=== PATIENT | female | born 1950 | race Caucasian/White ===

== ENCOUNTER 2020-05-18 11:36 | Inpatient (IN) | payer BC, SELFPAY ==
[2020-05-18] VITALS: BP_SYST 145
[~2020-05-18] VITALS: Ht 142.2 cm; Wt 45.4 kg
--- NOTE | 2020-05-18 11:55 | NUR ---
ER DR. HUSTON EVALUATING PT
[2020-05-18 12:01] VITALS: BP_SYST 125
--- NOTE | 2020-05-18 12:06 | NUR ---
Patient triaged and placed in ER tent. VSS and patient appears in no acute distress at this time. Accompanied by daughter, awaiting available bed, and MD notified of need for MSE.
--- NOTE | 2020-05-18 12:50 | NUR ---
Patient to ER bed 6 to gown for evaluation. Side rails up.
[2020-05-18 12:54] LABS: BASOPHILS # (AUTO) 0.1 K/uL (0.0-0.2); EOSINOPHILS % (AUTO) 0.1 % (0.0-4.0); HEMOGLOBIN 15.4 g/dL (12.0-16.0); LYMPHOCYTES # (AUTO) 1.7 K/uL (1.0-5.5); MEAN CORPUSCULAR VOLUME 91 fL (79.0-98.0); RED CELL DISTRIBUTION WIDTH 13.7 % (9.0-15.0); WHITE BLOOD COUNT (AUTO) 8.5 K/uL (4.8-10.8)
[2020-05-18 12:59] LABS: BASOPHILS % (AUTO) 1.4 % (0.0-2.0); HEMATOCRIT 45.1 % (36-48); LYMPHOCYTES % (AUTO) 19.8 % (20.5-51.5); MEAN CORPUSCULAR HEMOGLOBIN 31 pg (27-31); MEAN CORPUSCULAR HGB CONC 34 % (32-36); MONOCYTES # (AUTO) 0.8 K/uL (0.0-1.0); NEUTROPHILS # (AUTO) 5.9 K/uL (1.8-7.7); NEUTROPHILS % (AUTO) 69.7 % (40.0-70.0); PLATELET COUNT (AUTO) 430 K/uL (130-430); RED BLOOD CELL COUNT(AUTO) 4.98 MIL/uL (4.2-6.2)
--- NOTE | 2020-05-18 13:00 | NUR ---
PT WAS BIB HER DAUGHTER FOR INCREASE IN CONFUSION, AGITATION AND YELLING AT HOME. PT PRESENTS AAOX1, CONFUSED BUT DIRECTABLE. V/S STABLE
[2020-05-18 13:09] LABS: ANION GAP 10 (5-15); CALCIUM 7.9 mg/dL (8.4-11.0); CHLORIDE 102 mmol/L (98-107); CREATININE 0.79 mg/dL (0.55-1.30); GLUCOSE 206 mg/dL (70-99); POTASSIUM 4.5 mmol/L (3.5-5.1); SODIUM SERUM 135 mmol/L (136-145); UREA NITROGEN, BLOOD 23 mg/dL (8-21)
[2020-05-18 13:13] LABS: GFR AFRICAN AMERICAN 93 mL/min (>90); PROTHROMBIN TIME 10.7 SECS (9.5-12.5)
[2020-05-18 13:22] LABS: ALANINE AMINOTRANSFERASE 37 U/L (12-78); ALBUMIN 3.1 g/dL (3.4-4.8); ASPARTATE AMINOTRANSFERASE 22 U/L (10-37); TOTAL BILIRUBIN 0.5 mg/dL (0.0-1.0)
[2020-05-18 13:27] LABS: ACETAMINOPHEN 54 ug/mL (1-30); ALCOHOL, BLOOD < 3 mg/dL (<10)
--- NOTE | 2020-05-18 14:05 | NUR ---
PT'S DAUGHTER CALLED AND STATES THAT SHE THINKS HER MOTHER TOOK AN UNKNOWN AMOUNT OF TYLENOL AND OR NYQUIL BUT IS NOT SURE DUE TO BOTTLES FOUND IN HER ROOM. SHE ALSO DOES NOT KNOW AROUND WHAT TIME THIS HAPPENED. DR. HUSTON MADE AWARE
--- NOTE | 2020-05-18 14:16 | NUR ---
Called Poison Control at [phone] and spoke with MADDIE. Per recommendations: START ACETYLCYSTEINE X 2 ROUNDS THEN REPEAT TYLENOL LEVELS AND LIVER FUNCTION PANELS Dr. HUSTON notified. Will continue to monitor patient.
[2020-05-18] MEDS ORDERED: ACETYLCYSTEINE IV 6000 MG/30 ML VIAL IV ONE ×2 (14:33→21:07)
[2020-05-18] MEDS ORDERED: D5W IV ONE ×4 (15:00→21:00)
[2020-05-18] MEDS ORDERED: ACETYLCYSTEINE IV ONE ×4 (15:00→21:00)
--- NOTE | 2020-05-18 15:46 | NUR ---
Patient will be admitted to care of Dr. Burt. Admitted to telemetry unit. Waiting for room assignment. Belongings list completed. Complete and up to date summary report printed. SBAR report to be given at bedside with opportunity for questions.
[2020-05-18] MEDS ORDERED: LIDOCAINE 1%, 20 ML MDV 20 ML ONE (16:20)
[2020-05-18] MEDS ORDERED: DEXTROSE 50% JECT 50 ML DISP.SYRIN IVP PRN (17:15)
[2020-05-18] MEDS ORDERED: COMMUNICATION ORDER XX ONE (17:15)
--- NOTE | 2020-05-18 17:29 | NUR ---
PT ABLE TO VOID, SPECIMEN COLLECTED AND SENT TO LAB
--- NOTE | 2020-05-18 18:00 | NUR ---
Patient resting quietly. No acute distress noted. Vital signs within normal range.
--- NOTE | 2020-05-18 18:38 | NUR ---
Patient will be admitted to care of DR. CIFUENTES. Admitted to TELE unit. Will go to room 122B. Belongings list completed. Complete and up to date summary report printed. SBAR report to be given at bedside with opportunity for questions.
[2020-05-18] MEDS ORDERED: LIP20 PO (18:48)
[2020-05-18] MEDS ORDERED: AMLO5TAB4 PO (18:48)
--- NOTE | 2020-05-18 18:48 | NUR ---
SW DAUGHTER KRISTINE @ WHO PROVIDED FURTHER INFORMATION, PT WAS DC'D FROM [facility] FOR COVID-19, SOME BEHAVIORAL PROBLEMS STARTED AROUND THIS TIME.
--- NOTE | 2020-05-18 18:50 | NUR ---
Medication reconciliation completed with information provided by KRISTINE (DAUGHTER). Any prior medication reconciliation on file was reviewed and corrected.
[2020-05-18] MEDS ORDERED: ALBU8.5H8 INH (18:51)
--- NOTE | 2020-05-18 19:15 | NUR ---
INITIAL NOTES PATIENT IS RESTING IN BED, IV SITE PATENT, DRESSINGS C/D/I. IVF RUNNING FROM ER. CALL LIGHT WITHIN REACH, BED ALARM ON. BED AT LOWEST POSITION. RECEIVED REPORT THAT PATIENT IS [place]ORE[place] SPEAKING. WILL CONTINUE TO MONITOR. Addendum: 05/19/20 at 0131 by Brad Cox RN CORRECT TIME 1934
[2020-05-18 19:25] VITALS: BP_SYST 110
--- NOTE | 2020-05-18 19:30 | NUR ---
ADMISSION NOTE Received patient from ER via kandace, received report from DANIEL Erickson. Patient admitted with diagnosis of overdose. Patient oriented to hospital routine, call light, toileting and safety-patient verbalized understanding.
[2020-05-18 20:00] VITALS: BP_SYST 110
[2020-05-18] MEDS: D5NS 1,000 ML IV SCH (20:30)
[2020-05-18] MEDS: INSULIN REGULAR, HUMAN 100 UNITS/ML, 10 ML VIAL (humuLIN R) SUBCUT PRN (21:00)
[2020-05-18 23:10] LABS: ALBUMIN 2.7 g/dL (3.4-4.8); BILIRUBIN,DIRECT 0.2 mg/dL (0.0-0.3); TOTAL BILIRUBIN 0.6 mg/dL (0.0-1.0)
--- NOTE | 2020-05-18 23:10 | NUR ---
SPOKE TO KRISTINE, SISTER IN LAW, UPDATED ON PATIENT'S STATUS. EXPLAINED THAT PATIENT IS CONFUSED AND IS CONTINUES TO COME OUT OF THE ROOM AT TIMES. SISTER IN LAW UNDERSTANDS. WILL CONTINUE TO MONITOR.
[2020-05-19] VITALS: BP_SYST 145
--- NOTE | 2020-05-19 01:28 | NUR ---
PATIENT CONTINUES TO WALK TO THE DOOR AND TRY TO COME OUT WITH THE IV POLE AND BEDSHEETS AND COMMODE. PATIENT IS CONFUSED AND HAS NO RESPIRATORY DISTRESS, AND WHEN ASKED IN FAROESE, PATIENT REMEMBERS THAT SHE IS TOLD TO STAY IN THE ROOM AND IN BED, BUT IS CONFUSED. WILL CONTINUE TO MONITOR.
--- NOTE | 2020-05-19 04:25 | NUR ---
CONSULT: CONSULT CALLED FOR DR. OSKAR SCHULTZ ENGINE ASSEMBLER AT THIS MOMENT I SPOKE WITH CHRISTOPHER FLOWER REASON FOR CONSULT: ENCEPHALOPATHY TYLENOL OVERDOSE REQUESTING CONSULT: DR. CIFUENTES PLASTICS SUPERVISOR PHONE NUMBER: [phone]
--- NOTE | 2020-05-19 04:36 | NUR ---
CONSULT: CONSULT FOR DR. NICKO Brunson SENT A MESSAGE TO DR. MAHARAJ TO LET HIM KNOW ABOUT THE CONSULT
[2020-05-19 06:56] LABS: BASOPHILS % (AUTO) 0.4 % (0.0-2.0); EOSINOPHILS % (AUTO) 0.2 % (0.0-4.0); HEMATOCRIT 41.6 % (36-48); HEMOGLOBIN 14.2 g/dL (12.0-16.0); LYMPHOCYTES # (AUTO) 1.9 K/uL (1.0-5.5); LYMPHOCYTES % (AUTO) 22.2 % (20.5-51.5); MEAN CORPUSCULAR HEMOGLOBIN 31 pg (27-31); MEAN CORPUSCULAR HGB CONC 34 % (32-36); MEAN CORPUSCULAR VOLUME 90 fL (79.0-98.0); MONOCYTES % (AUTO) 11.4 % (1.7-9.3); NEUTROPHILS # (AUTO) 5.6 K/uL (1.8-7.7); NEUTROPHILS % (AUTO) 65.8 % (40.0-70.0); PLATELET COUNT (AUTO) 380 K/uL (130-430); RED BLOOD CELL COUNT(AUTO) 4.65 MIL/uL (4.2-6.2); RED CELL DISTRIBUTION WIDTH 13.3 % (9.0-15.0); WHITE BLOOD COUNT (AUTO) 8.5 K/uL (4.8-10.8)
[2020-05-19] MEDS: INSULIN REGULAR, HUMAN 100 UNITS/ML, 10 ML VIAL (humuLIN R) SUBCUT PRN (06:59)
--- NOTE | 2020-05-19 07:04 | NUR ---
CLOSING NOTES PATIENT IS RESTING IN BED, NO SIGNS OF RESPIRATORY DISTRESS, ROOM AIR. TELEVISION ON. IV SITE PATENT, DRESSINGS C/D/I. IVF RUNNING. CALL LIGHT WITHIN REACH, BED AT LOWEST POSITION, STEADY GAIT, BEDSIDE COMMODE AT BEDSIDE. ALL NEEDS MET THROUGHOUT SHIFT. WILL ENDORSE CARE TO ONCOMING SHIFT.
[2020-05-19 07:07] LABS: INR 1.1 (0.8-1.2); PROTHROMBIN TIME 10.8 SECS (9.5-12.5)
[2020-05-19 07:24] LABS: ALBUMIN 2.3 g/dL (3.4-4.8); CALCIUM 7.2 mg/dL (8.4-11.0); CREATININE 0.51 mg/dL (0.55-1.30); POTASSIUM 3.1 mmol/L (3.5-5.1); TOTAL BILIRUBIN 0.6 mg/dL (0.0-1.0)
--- NOTE | 2020-05-19 07:30 | NUR ---
OPENING NOTE RECEIVED PATIENT AWAKE, ALERT, CONFUSED. HEBREW SPEAKING. RESPIRATIONS EVEN AND UNLABORED ON ROOM AIR. BILATERAL WRIST RESTRAINTS IN PLACE WITH O SIGNS OF INJURY NOTED. IV SITE PATENT AND INTACT TO RIGHT FOREARM, TOLERATING IV FLUIDS. FALL, SAFETY AND ISOLATION PRECAUTIONS IN PLACE. BED LOCKED IN LOW POSITION WITH CALL LIGHT IN REACH. Addendum: 05/20/20 at 0746 by Betsy Gonzalez RN CORRECT TIME OF NOTE IS 1929
--- NOTE | 2020-05-19 07:34 | NUR ---
Opening Note received SBAR report from technical healthcare consultant RN, patient resting in bed, respirations even and unlabored on room air, no acute distress noted, educated patient on use of call light and asked to call for assistance, patient verbalized understanding, call light in reach, educated patient on use of bed alarm for patient safety, patient verbalized understanding, patient refusing bed alarm, bed in low and locked position.
--- NOTE | 2020-05-19 07:44 | NUR ---
PAGED DR SHEY CIFUENTES FOR ORDERS SPOKE TO [facility]
[2020-05-19 08:00] VITALS: BP_SYST 153
--- NOTE | 2020-05-19 08:02 | NUR ---
Restraints patient ambulated into purcell, patient dragging IV pole, chair, and bedside commode into purcell, unsteady gait, patient incontinent of urine, patient cleaned, linen and gown changed, educated patient on patient safety and fall prevention, patient verbalized understanding but is forgetful and attempts to ambulate again, battery charger tester spoke with Dr. Burt, orders for soft wrist restraints received, educated patient on use and purpose of soft wrist restraints for patient safety, patient verbalized understanding, soft wrist restraints applied, attempted to call patients brother Reggie Duncan, unable to reach him, called patients [id number] Margo Pepe, educated her on purpose and procedure for soft wrist restraints and patient safety, Margo verbalized understanding and is agreeable for soft wrist restraint use.
--- NOTE | 2020-05-19 08:45 | NUR ---
Out of bed bed alarm heard, RN to bedside immediately, patient attempting to ambulate, soft wrist restraints in place, patient climbed over side rail and is standing at side of bed, assisted patient back to bed, reinforced education on fall prevention and patient safety, patient verbalized understanding, reinforced education on use of soft wrist restraints for patient safety, patient verbalized understanding, educated patient on use of call light and asked to call for assistance, patient verbalized understanding, call light in reach.
--- NOTE | 2020-05-19 09:50 | NUR ---
Out of bed patient attempting to ambulate again, patient placed legs over side rail and is standing at side of bed, assisted patient back to bed, reinforced education on fall prevention and patient safety, patient verbalized understanding, reinforced education on use of soft wrist restraints for patient safety, patient verbalized understanding, educated patient on use of call light and asked to call for assistance, patient verbalized understanding, call light in reach.
--- NOTE | 2020-05-19 09:53 | NUR ---
SS notes: FURNITURE ARRANGER was referred by nursing to see patient for tylenol overdose and DCP. Demographic information confirmed. MAGDALENA phoned next of kin contact Margo @ [phone]. Patrice Aragon, pt is a 70 y/o single female who came in via ED. Pt lives with her 3 siblings at home. Pt is independent with her ADL's and does not own/need any DME. Pt has history of depression, "mom recently " but no mental health diagnosis. Pt does not have a history of substance use/abuse; pt's tylenol overdose "was not intentional". Pt's only source of income is her SSI, and pt manages her own finances. Per Margo, pt was diagnosed with Covid last month and was admitted at [facility]. Pt was discharged and family noticed increased confusion and sudden outbursts. Per Margo, pt shows "early dementia" for a couple of months now. Per Margo, one incident was when pt went to the groceries store but forgot why pt went there in the first place. Per Margo, pt also urinated in the living room, and had her trousers down to her knee. Per Margo, when discharge, family prefers for patient to go home; "someone can always watch her at home". If SNF or HHS is indicated, the family would like to think about it and talk it over.
--- NOTE | 2020-05-19 10:05 | NUR ---
Physician Rounds rounds with Dr. Burt at nurses [facility], informed him that patients COVID rapid was negative, per Dr. Burt he will look at patients chart before orders to discontinue isolation vs doing COVID PCR test, informed him that patients potassium is 3.1, informed him that despite use of restraints and repeated education patient is still getting out of bed, patient is confused at times, patient is unsteady when trying to ambulate with furniture, new medication orders received, verified with read back.
--- NOTE | 2020-05-19 10:10 | NUR ---
HIGH ALERT NOTE: Dr. Burt at nurses station, identified within the medical roster to verify physician authenticity.
[2020-05-19] MEDS ORDERED: POTASSIUM CHLORIDE 40 MEQ in NS 250 ML IV ONE (10:15)
[2020-05-19] MEDS ORDERED: HALOPERIDOL LACTATE 5 MG/ML VIAL IVP PRN (10:15)
--- NOTE | 2020-05-19 10:24 | NUR ---
Physician Rounds Dr. Hope at bedside examining patient.
[2020-05-19] MEDS: D5NS 1,000 ML IV SCH ×3 (10:34→23:21)
--- NOTE | 2020-05-19 11:15 | NUR ---
Agitation patient is agitated, patient cursing and putting legs over side rail, attempted to calm patient, attempted to redirect patient, unsuccessful, PRN haldol indicated for agitation, educated patient on use and side effects of PRN haldol including increased risk for falls, patient verbalized understanding, patient tolerated medication administration well, no acute distress noted.
[2020-05-19 12:14] VITALS: BP_SYST 153
--- NOTE | 2020-05-19 12:43 | NUR ---
PAGED DR SHEY CIFUENTES FOR ORDERS SPOKE TO MARIANO
--- NOTE | 2020-05-19 13:00 | NUR ---
IV access patient removed restraint and removed IV catheter, IV catheter intact, no bleeding, educated patient on purpose and procedure for new IV catheter placement, patient verbalized understanding, IV catheter placed to right forearm, 22G, flushes easily with good blood return, patient tolerated well, soft wrist restraints in place.
--- NOTE | 2020-05-19 14:23 | NUR ---
IV access patient removed soft wrist restraints, patient removed IV catheter, catheter intact, no bleeding, educated patient on purpose and procedure of IV catheter placement, patient verbalized understanding, IV catheter placed to right forearm, 22G, flushes easily with blood return, patient tolerated well, patient remains confused attempts to remove cardiac tech, soft wrist restraints in place, no acute distress noted.
[2020-05-19 16:35] VITALS: BP_SYST 155
--- NOTE | 2020-05-19 17:15 | NUR ---
RN Rounds patient sitting up in bed eating dinner, tolerating well, no acute distress noted, patient denies any nausea.
[2020-05-19 17:55] VITALS: BP_SYST 135
--- NOTE | 2020-05-19 19:06 | NUR ---
Closing Note SBAR report given to receiving RN, patient resting in bed, respirations even and unlabored on room air, no acute distress noted, soft wrist restraints in place, educated patient on use of call light and asked to call for assistance, patient verbalized understanding, call light in reach, bed in low and locked position, bed alarm on, care endorsed to production supervisor off shift RN.
[2020-05-19 20:00] VITALS: BP_SYST 131
--- NOTE | 2020-05-19 20:30 | NUR ---
BED ALARM SOUNDING PATIENT ATTEMPTING TO CLIMB OUT OF BED. REINFORCED BILATERAL SOFT WRIST RESTRAINTS. EDUCATED PATIENT ON RISKS OF GETTING OUT OF BED. PATIENT VERBALIZED UNDERSTANDING. 3 SIDE RAILS UP AND BED ALARM ON. WILL CONTINUE TO MONITOR.
--- NOTE | 2020-05-20 | NUR ---
RN ROUNDS BLOOD SUGAR 126, NO INSULIN COVERAGE NEEDED AT THIS TIME. PATIENT RESTING IN BED WATCHING TV. INCONTINENCE CARE PROVIDED. LINENS CHANGED. WILL CONTINUE TO MONITOR.
--- NOTE | 2020-05-20 02:00 | NUR ---
BED ALARM SOUNDING PATIENT ATTEMPTING TO GET OUT OF BED, ONE RESTRAINT OFF AND PATIENT PULLING AT FARMWORKER GRAIN. EDUCATED PATIENT OF RISKS OF GETTING OUT OF BED AND REMOVING MEDICAL EQUIPMENT. PATIENT VERBALIZED UNDERSTANDING. REPLACED FARMWORKER GRAIN AND SOFT WRIST RESTRAINT. BED ALARM ON. WILL CONTINUE TO MONITOR.
[2020-05-20 04:00] VITALS: BP_SYST 133
--- NOTE | 2020-05-20 04:15 | NUR ---
INCONTINENCE CARE INCONTINENCE CARE PROVIDED. RELEASED RESTRAINTS TO REPOSITION PATIENT. PATIENT BEGAN PULLING AT IV SITE AND REMOVED TELE MONITOR. REPLACED RESTRAINTS, REINFORCED IV SITE, REMAINS PATENT WITH NO SIGNS OF INFILTRATION NOTED. TELE MONITOR IN PLACE. PATIENT CONTINUED TO TRY TO REMOVE IV DESPITE EDUCATION.
--- NOTE | 2020-05-20 07:00 | NUR ---
CLOSING NOTE PATIENT HAS FEET UP TRYING TO GET OUT OF BED. REPOSITIONED PATIENT. BED ALARM ON. RESTRAINTS IN PLACE WITH NO SIGNS OF INJURY NOTED. RESPIRATIONS EVEN AND UNLABORED ON ROOM AIR. PATIENT STABLE AT THIS TIME. BED LOCKED IN LOW POSITION WITH CALL LIGHT IN REACH. SAFETY, FALL, AND ISOLATION PRECAUTIONS REMAIN IN PLACE. WILL CONTINUE TO MONITOR UNTIL ENDORSED TO AM NURSE.
[2020-05-20 07:22] LABS: BASOPHILS # (AUTO) 0.1 K/uL (0.0-0.2); BASOPHILS % (AUTO) 0.7 % (0.0-2.0); EOSINOPHILS % (AUTO) 0.2 % (0.0-4.0); HEMATOCRIT 43.3 % (36-48); HEMOGLOBIN 14.6 g/dL (12.0-16.0); LYMPHOCYTES # (AUTO) 1.6 K/uL (1.0-5.5); LYMPHOCYTES % (AUTO) 22.2 % (20.5-51.5); MEAN CORPUSCULAR HEMOGLOBIN 31 pg (27-31); MEAN CORPUSCULAR HGB CONC 34 % (32-36); MEAN CORPUSCULAR VOLUME 91 fL (79.0-98.0); MONOCYTES # (AUTO) 0.7 K/uL (0.0-1.0); MONOCYTES % (AUTO) 10.3 % (1.7-9.3); NEUTROPHILS # (AUTO) 4.8 K/uL (1.8-7.7); NEUTROPHILS % (AUTO) 66.6 % (40.0-70.0); PLATELET COUNT (AUTO) 355 K/uL (130-430); RED BLOOD CELL COUNT(AUTO) 4.77 MIL/uL (4.2-6.2); RED CELL DISTRIBUTION WIDTH 13.4 % (9.0-15.0); WHITE BLOOD COUNT (AUTO) 7.3 K/uL (4.8-10.8)
--- NOTE | 2020-05-20 07:37 | NUR ---
Opening Note received SBAR report from hourly shift RN, patient resting in bed, respirations even and unlabored on room air, no acute distress noted, soft wrist restraints in place, educated patient on use of call light and asked to call for assistance, patient verbalized understanding, call light in reach, bed in low and locked position, bed alarm on.
[2020-05-20 07:42] LABS: ALBUMIN 2.7 g/dL (3.4-4.8); CALCIUM 7.5 mg/dL (8.4-11.0); CREATININE 0.53 mg/dL (0.55-1.30); POTASSIUM 3.7 mmol/L (3.5-5.1); TOTAL BILIRUBIN 0.6 mg/dL (0.0-1.0)
[2020-05-20] MEDS: D5NS 1,000 ML IV SCH ×2 (08:01→18:29)
[2020-05-20 08:02] VITALS: BP_SYST 156
--- NOTE | 2020-05-20 08:40 | NUR ---
Physician Rounds Dr. Hope at bedside examining patient.
--- NOTE | 2020-05-20 11:11 | NUR ---
POISON CONTROL S/W SEPTEMBER FROM POISON CONTROL. LAB VALUES RELAYED TO SEPTEMBER AFTER ID VERIFICATION. PER SEPTEMBER, PATIENT CASE WITH POISON CONTROL WILL BE CLOSE
--- NOTE | 2020-05-20 11:20 | NUR ---
Physician Rounds Dr. Loo at bedside examining patient.
--- NOTE | 2020-05-20 11:51 | NUR ---
CONSULT PSYCH CONFUSION DR SNIDER [phone] S/W METAL BUMPER FACESHEET FAXED TO [phone]
[2020-05-20] MEDS: INSULIN REGULAR, HUMAN 100 UNITS/ML, 10 ML VIAL (humuLIN R) SUBCUT PRN (11:55)
--- NOTE | 2020-05-20 12:50 | NUR ---
Spoke with family received call from patients [id number] Margo, updated her on plan of care, informed her that patient is still confused today and that patient has been tolerating diet well, informed her that Dr. Malave has been consulted to see the patient, allowed time for questions.
[2020-05-20 12:57] VITALS: BP_SYST 145
--- NOTE | 2020-05-20 13:15 | NUR ---
RN Rounds offered toileting needs, patient denies needing to use restroom at this time, offered patient water, patient drank water, tolerated well, no additional needs at this time.
--- NOTE | 2020-05-20 15:20 | NUR ---
Out of bed patient removed restraints, bed alarm heard, RN at bedside immediately, patient standing at side of bed, patient attempting to remove IV line, assisted patient back to bed, IV site clean, dry, and intact, soft wrist restraints in place, reinforced education on use of call light and asked patient to call for assistance, patient verbalized understanding, call light in reach, bed in low and locked position, bed alarm on.
[2020-05-20 16:44] VITALS: BP_SYST 146
--- NOTE | 2020-05-20 16:47 | NUR ---
Bathroom assisted patient to ambulate to bathroom, patient voided x1, assisted patient back to bed, patient resting in bed, no acute distress noted.
--- NOTE | 2020-05-20 18:10 | NUR ---
Dinner patient eating dinner, tolerating well, no acute distress noted, minimal assistance required, patient denies any nausea or vomiting.
[2020-05-20 19:00] VITALS: BP_SYST 148
--- NOTE | 2020-05-20 19:11 | NUR ---
Closing Note patient resting in bed watching TV, respirations even and unlabored on room air, no acute distress noted, soft wrist restraints in place, educated patient on use of call light and asked to call for assistance, patient verbalized understanding, call light in reach, bed in low and locked position, bed alarm on, care endorsed to weight shifter RN.
--- NOTE | 2020-05-20 19:15 | NUR ---
change of shift.pt.presents isolation status:droplet;covid19+status.pt.presents restraints wrist bilateral in place.pt.presents iv access intact;patent iv fluids infusing.language barrier extant;yoruba sole language.pt.presents confused loc.general status stable.respiratory status stable;unlabored@room air.call light/telephone w/in access of the pt.
[2020-05-20 20:00] VITALS: BP_SYST 148
--- NOTE | 2020-05-20 20:00 | NUR ---
pt.assessed.v/s assessed values w/in normal limits.restraints assessed in place.skin/circulation assessed wnl.loc;CONFUSEd.LANGUAGE BARrIER BELARUSIAN PT'S SOLE LAnGUAGE.I HaVE inquired of the pt.geneverett q's. pt.presents confused loc.pt.assessed for cleanliness.pt.repositioned.iv access intact;patent iv fluids infusing. call light/telephone placed w/in access of the pt.
--- NOTE | 2020-05-20 22:00 | NUR ---
pt.assessed.pt.presents affect;restless.agitation.dr.kangarlu rodríguez.pt.assessed for cleanliness.pt.repositioned.restraints;wrist bilateral in place.skin/circulation assessed wnl.iv access intact;patent iv fluids infusing.general status stable.respiratory status stable.o2-sat=98%.call light/telephone placed w/in acces of the pt.
[2020-05-20] MEDS ORDERED: LORazepam 2 MG/ML VIAL IVP ONE (22:15)
--- NOTE | 2020-05-20 22:15 | NUR ---
HIGH ALERT NOTE: Called Dr. mayen back at identified within the medical roster to verify physician authenticity.cell phone. pt.presents affect;restless attempt to leave the bed. paged;apprised /brielle of the pt's affect status. ordered ativan;1mg ivp x1.
[2020-05-20] MEDS ORDERED: LORazepam 2 MG/ML VIAL ONE (22:23)
--- NOTE | 2020-05-20 22:30 | NUR ---
returned the page.i apprised of the pt's affect status;restless;agitation. ordered ativan;1gm ivp.x1. i have administered the ativan;1mg ivp to asses the efficacy of the medication per protocol.
[2020-05-21] VITALS: BP_SYST 135
--- NOTE | 2020-05-21 | NUR ---
pt.assessed.v/s assessed values w/in normal limits.restraints;wrist bilateral assessed in place.skin/circulation assessed wnl. blood glucose assessed value 113mg/dl.pt.assessed for cleanliness.pt.repositioned.iv access intact;patent iv fluids infusing. general status stable.respiratory status stable;unlabored.o2-sat%=98%.CALL LiGHT/TELEPHOne PlACED W/IN ACCESS OF THe PT.
--- NOTE | 2020-05-21 02:00 | NUR ---
pt.assessed.restraints assessed in place.skin/circulation assessed wnl.pt.assessed for cleanliness.pt.repositioned.iv access intact;patent iv fluids infusing. per flacc pain mgx pt.absent facial grimaces/body posturing.general status stable.respiratory status stable;slight labored;02- sat%=98%.CALL LiGHT/TELEPHOnE PlACED W/IN ACCESS OF THE PT.
[2020-05-21 04:00] VITALS: BP_SYST 133
--- NOTE | 2020-05-21 04:00 | NUR ---
pt.assessed.restraints assessed in place.skin/circulation assessed wnl.pt.assessed for cleanliness.pt.cleaned/repositioned. iv access intact;patent iv fluids infusing.no c/o pain,nausea;serbian.general status stable.respiratory status stable unlabored: 02-sat%=98%call light/telephone placed w/in access of the pt.
[2020-05-21] MEDS: D5NS 1,000 ML IV SCH ×3 (04:32→23:57)
--- NOTE | 2020-05-21 06:23 | NUR ---
pt.assessed.restraints assessed in place.skin/circulation assessed wnl.blood glucose assessed:value;102mg/dl.pt.assessed for cleanliness.pt.repositioned.iv acces intact;patent iv fluids infusing.general status stable.respiratory status stable;unlabored:02- sat%=98%.call light/telephone placed w/in access of the pt.
--- NOTE | 2020-05-21 06:48 | NUR ---
i was apprised the pcr covid test;collected 05/20/20 presented +results. paged.galindo returned the page. i apprised .of the +results covid;pcr:05/20/20. inquired of the pt's o2-sat%=96-98%if pt.is sob;pt.is not.no orders posited per
[2020-05-21 08:00] VITALS: BP_SYST 135
[2020-05-21 12:00] VITALS: BP_SYST 148
--- NOTE | 2020-05-21 12:20 | NUR ---
CONSULTATION PAGED/CALLED Reason for Consultation: COVID POSITIVE Person Who was Notified: MARIANO Consulting Physician: MICHELINE CARSON Electric Furnace Operator Specialty: ID Ordering Physician: VANE
[2020-05-21 16:00] VITALS: BP_SYST 143
--- NOTE | 2020-05-21 16:48 | NUR ---
patient resting in bed, respirations even and unlabored on RA, no acute distress noted, soft wrist restraints in place, educated patient on use of call light and asked to call for assistance, call light within reach, bed locked at the lowest position, bed alarm on, care endorsed to overnight associate RN.
--- NOTE | 2020-05-21 18:00 | NUR ---
blood sugar 87. No coverage needed.
--- NOTE | 2020-05-21 19:45 | NUR ---
initial notes: pt is awake, alert oriented to name and birthday. no pain, no sob, not distress. stable vital sign. iv site to right wrist is leaking. will change to new one later. pt has bilateral wrist restrain. no injury, assisted tp to bathroom. steady gait, chux change and linen change. needs attended, bed alarm on. low bed position. covid isolation
[2020-05-21 20:00] VITALS: BP_SYST 150
[2020-05-21] MEDS: QUEtiapine FUMARATE 25 MG TABLET PO SCH (20:46)
[2020-05-21] MEDS: DONEPEZIL HCL 5 MG TABLET (ARICEPT) PO SCH (20:46)
--- NOTE | 2020-05-21 22:00 | NUR ---
resting quietly. not distress, stable. restrain check, no injury. bed alarm on. low bed position. covid isolation
[2020-05-22 00:06] VITALS: BP_SYST 141
--- NOTE | 2020-05-22 00:14 | NUR ---
pt is resting,wakes up. blood sugar 132, assisted to bathroom, steady gait. back to bed. needs attended. restrain check. no injury. will follow-up.
--- NOTE | 2020-05-22 02:17 | NUR ---
sleeping, no sob, stable. restrain check, no injury. covid isolation.
--- NOTE | 2020-05-22 04:10 | NUR ---
sleeping,comfortable, no sign of pain, no sob, stable. restrain check, no injury. covid isolation.
--- NOTE | 2020-05-22 06:00 | NUR ---
ROUND: PT IS RESTING IN BED. NO SIGN OF PAIN. NOT DISTRESS, WAKES UP PT. CHECK RESTRAIN NO INJURY, ASSISTED PT TO BATHROOM, STEADY GAIT. BACK TO BED. NEEDS ATTENDED CALL LIGHT IN REACH. BED ALARM ON. LOWEST BED POSITION. COVID ISOLATION.
--- NOTE | 2020-05-22 07:08 | NUR ---
CLOSING: PT RESTING. NO AGITATION, NO PAIN, NOT SOB, IVF INFUSING WELL. WRIST RESTRAIN RECHECK Q2HR. NO SIGN OF INJURY, NEEDS ATTENDED THE WHOLE SHIFT, BED ALARM ON, WILL GIVE SBAR REPORT TO AM RN.
[2020-05-22 08:50] VITALS: BP_SYST 140
[2020-05-22] MEDS: QUEtiapine FUMARATE 25 MG TABLET PO SCH ×2 (08:50→21:24)
--- NOTE | 2020-05-22 08:50 | NUR ---
Scheduled medication given per order. Patient stable at this time.
[2020-05-22] MEDS: D5NS 1,000 ML IV SCH ×2 (09:23→21:24)
--- NOTE | 2020-05-22 09:24 | NUR ---
Started new IVF bag. Patient resting comfortably in bed with no distress noted. Addendum: 05/22/20 at 0942 by Paris Palomino RN [phone]: Patient ambulated to bathroom and back to bed. Stable.
--- NOTE | 2020-05-22 12:40 | NUR ---
Routine Checked blood sugar: 109 mg/dl - no coverage required. Patient stable at this time.
[2020-05-22 12:45] VITALS: BP_SYST 127
[2020-05-22 16:00] VITALS: BP_SYST 133
--- NOTE | 2020-05-22 16:00 | NUR ---
Patient taken via wheelchair for MRI.
--- NOTE | 2020-05-22 16:34 | NUR ---
Routine Patient returned to unit in stable condition.
--- NOTE | 2020-05-22 17:49 | NUR ---
Routine Patient resting comfortably in bed with no complaint of pain. Checked blood sugar: 98 mg/dl - no coverage required. Patient stable at this time.
--- NOTE | 2020-05-22 18:55 | NUR ---
Routine Patient resting comfortably in bed with no distress noted. Patient stable throughout shift.
[2020-05-22 20:00] VITALS: BP_SYST 130
--- NOTE | 2020-05-22 20:00 | NUR ---
INITIAL NOTE AT INITIAL ASSESSMENT, PATIENT IS RESTING IN BED, STABLE, NO SIGNS OF RESPIRATORY DISTRESS. PATIENT VERBALIZES NO PAIN. PLAN OF CARE FOR THE EVENING IS COMMUNICATED WITH THE PATIENT. PATIENT IS UNABLE TO DEMONSTRATE CORRECT USAGE OF CALL LIGHT AT THIS TIME DUE TO COGNITIVE IMPAIRMENT; FREQUENT ROUNDING WILL BE COMPLETED THROUGHOUT THE NIGHT TO MEET ALL PATIENT NEEDS. BED IS LOCKED, ALARMED, AND AT THE LOWEST LEVEL. FALL SAFETY EDUCATION PROVIDED. FALL, SAFETY, AND RESPIRATORY PRECAUTIONS WILL BE TAKEN THROUGHOUT THE SHIFT.
[2020-05-22] MEDS: DONEPEZIL HCL 5 MG TABLET (ARICEPT) PO SCH (21:23)
--- NOTE | 2020-05-22 22:00 | NUR ---
MED PASS NOTE SCHEDULED MEDICATIONS GIVEN AT THIS TIME, PATIENT TOLERATED WELL. CALL LIGHT IS PLACED WITHIN REACH. BED IS LOCKED, ALARMED, AND AT THE LOWEST LEVEL.
--- NOTE | 2020-05-22 23:30 | NUR ---
HYGIENE CARE NOTE HYGIENE CARE IS PROVIDED AT THIS TIME, FRESH LINENS PROVIDED, AND PATIENT IS REPOSITIONED FOR COMFORT. PATIENT TOLERATED WELL. CALL LIGHT PLACED WITHIN REACH. BED IS LOCKED, ALARMED, AND AT THE LOWEST LEVEL.
[2020-05-23 00:21] VITALS: BP_SYST 122
--- NOTE | 2020-05-23 01:30 | NUR ---
NOTE PATIENT IS SLEEPING, STABLE, NO SIGNS OF RESPIRATORY DISTRESS. CALL LIGHT IS WITHIN REACH. BED IS LOCKED, ALARMED, AND AT THE LOWEST LEVEL.
--- NOTE | 2020-05-23 03:20 | NUR ---
NOTE PATIENT IS SLEEPING, STABLE, NO SIGNS OF RESPIRATORY DISTRESS. CALL LIGHT IS WITHIN REACH. BED IS LOCKED, ALARMED, AND AT THE LOWEST LEVEL.
[2020-05-23] MEDS: D5NS 1,000 ML IV SCH (05:28)
--- NOTE | 2020-05-23 06:25 | NUR ---
CLOSING NOTE PATIENT HAD NO EPISODES OF AGITATION DURING THE NIGHT, SHE SLEPT WELL THROUGHOUT THE SHIFT, NO SHORTNESS OF BREATH NOTED. AT THIS TIME, PATIENT IS RESTING IN BED, STABLE, NO SIGNS OF RESPIRATORY DISTRESS. CALL LIGHT IS WITHIN REACH. BED IS LOCKED, ALARMED, AND AT THE LOWEST LEVEL. FALL, SAFETY, AND RESPIRATORY PRECAUTIONS HAVE BEEN TAKEN THROUGHOUT THE SHIFT. WILL CONTINUE TO MONITOR UNTIL SHIFT REPORT IS GIVEN AT BEDSIDE TO AM NURSE.
--- NOTE | 2020-05-23 07:29 | NUR ---
D/C Patient Patient given medication reconciliation form and D/C instructions. Exit Care provided. Patient verbalized understanding. Ambulatory with steady gait for discharge to home. Patient in stable condition, ID band removed. IV catheter removed, intact and dressing applied, no active bleeding. Rx of given. All belongings sent with patient. Addendum: 05/23/20 at 7 by Luzma Maat RN DISCARD. WRONG TIME
--- NOTE | 2020-05-23 08:00 | NUR ---
INITIAL NOTES AWAKE, CRYING AND WANTS WANTS TO GO HOME. ASSISTED TO THE BATHROOM. PATIENT AMBULATE WITH STEADY GAIT. nO DISTRESS NOTED. AFEBRILE, NO COUGH.IVF INFUSING WELL. WILL MONITOR.
[2020-05-23 08:12] VITALS: BP_SYST 138
[2020-05-23] MEDS: QUEtiapine FUMARATE 25 MG TABLET PO SCH (09:25)
--- NOTE | 2020-05-23 10:26 | NUR ---
Nutrition Update Yung scale 18 noted. Pt admitted for encephalopathy, Tylenol OD Diet: soft (low fiber/bland) BMI: 22.4 kg/m2 RD to follow per nutrition care standards.
--- NOTE | 2020-05-23 11:00 | NUR ---
NOTES- RESTING IN BED, NO DISTRESS NOTED. NO AGITATION NOTED.
[2020-05-23] MEDS ORDERED: SER25 PO (12:13)
--- NOTE | 2020-05-23 13:00 | NUR ---
nOTES- uNABLE TO CONTACT FAMILY AT THIS TIME TO ACCOUNT RECEIVABLE CLERK PATIENT.
[2020-05-23] MEDS: INSULIN REGULAR, HUMAN 100 UNITS/ML, 10 ML VIAL (humuLIN R) SUBCUT PRN (13:15)
[2020-05-23 13:19] VITALS: BP_SYST 134
[2020-05-23 13:49] VITALS: BP_SYST 124
--- NOTE | 2020-05-23 19:29 | NUR ---
D/C Patient Patient given medication reconciliation form and D/C instructions. Exit Care provided. Patient verbalized understanding. Ambulatory with steady gait for discharge to home. Patient in stable condition, ID band removed. IV catheter removed, intact and dressing applied, no active bleeding. Rx of given. All belongings sent with patient.
--- NOTE | 2020-05-28 15:51 | NUR ---
Discharge Follow Up Phone Call Phoned patient, , and spoke with patient's family member, Margo. She stated that patient is increasingly confused and cannot be left alone. They filled the prescription and have been in contact with patient's PCP. The PCP prescribed another medication, but patient is non compliant. The family does not know what to do. I phoned Dr Cruz' office (psych), . The office staff stated that Dr Cruz is not accepting new office patients but that they will be able to help Margo find a solution that fits her insurance. Phoned Margo back and gave her the number. Patient now has a Covid negative test. Possibly patient would be able to go to inpatient psych at this time. She will follow up.
== END 2020-05-23 19:29 | disposition home or self-care (01) | DRG 917 ==
LOC: SED 11:36 → STU 15:41 → SMU 05-20 11:14
PROVIDERS: ADMIT Internal Medicine Hospice and Palliative Medicine; ATTEND Internal Medicine Hospice and Palliative Medicine
DX: T39.1X1A Poisoning by 4-Aminophenol derivatives, accidental (unintentional), initial encounter (principal); U07.1 COVID-19; J12.89 Other viral pneumonia; G93.41 Metabolic encephalopathy; D68.9 Coagulation defect, unspecified; R73.9 Hyperglycemia, unspecified; F03.90 Unspecified dementia, unspecified severity, without behavioral disturbance, psychotic disturbance, mood disturbance, and anxiety; F41.9 Anxiety disorder, unspecified; Z86.19 Personal history of other infectious and parasitic diseases; Y92.89 Other specified places as the place of occurrence of the external cause
CPT/HCPCS: 36415; 70450-TC; 70551; 71045; 76376; 80053; 80076; 82140-TC; 82962; 84484; 85025; 85610-TC; 87081; 93005; 96365; 96366; 96367; 99291; G0378; G0480; G0481; G0482; J0132; J1630; J1815; J2001; J2060; J3480; J7050; J7060; U0003